=== PATIENT | male | born 1955 | race African-American/Black ===

== ENCOUNTER 2016-06-28 14:05 | Observation (INO) | payer MEDICAID, OTHER ==
[2016-06-28] MEDS ORDERED: NS 0.9% 1000 ML* 2,000 ML IV ONE (14:59)
[2016-06-28] MEDS ORDERED: Pantoprazole IV* 40 MG IV ONE ×2 (14:59)
[2016-06-28 15:28] LABS: Hematocrit 33 % (42-52); Hemoglobin 11.2 g/dl (14.0-18.0); Mean Corpuscular HGB Conc 34 g/dl (31-36); Mean Corpuscular Hemoglobin 31 pg (27-31); Mean Corpuscular Volume 92 fL (80-94); Mean Platelet Volume 8 um3 (7.4-10.4); Red Blood Count 3.58 10^6/ul (4.0-5.4); Red Cell Distribution Width 14 % (10.5-15); White Blood Count 8.3 10^3/ul (3.5-10.8)
[2016-06-28] MEDS: NS 0.9% 1000 ML* 2,000 ML IV ONE (15:40)
[2016-06-28 15:46] LABS: ALT 28 U/L (7-52); AST 31 U/L (13-39); Albumin 3.8 g/dL (3.2-5.2); Alkaline Phosphatase 52 U/L (34-104); Anion Gap 4 mmol/L (2-11); BUN/Creatinine Ratio 20.5 (8-20); Blood Urea Nitrogen 16 mg/dL (6-24); C Reactive Protein 6.23 mg/L (< 5.00); CO2 Carbon Dioxide 26 mmol/L (22-32); Chloride 101 mmol/L (101-111); EGFR Non-African American 101.9 (>60); Globulin 2.9 g/dL (2-4); Glucose 93 mg/dL (70-100); Lipase < 10 U/L (11.0-82.0); Potassium 4.2 mmol/L (3.5-5.0); Sodium 131 mmol/L (133-145); Total Protein 6.7 g/dL (6.4-8.9)
--- NOTE | 2016-06-28 16:26 | ED ---
Ephraim Galvez Anna, scribed for rFank Moctezuma MD on 06/28/16 at 1438 . GI/ HPI - HPI Summary HPI Summary: Patient is a 60 y/o male coming to [facility] presenting with bloody stools that occurred twice, 0900, and 1330 today. He additionally reports nausea, lightheadedness, and hyperactive bowel sounds. Denies abdominal pain. Nothing appears to alleviate or exacerbate the symptoms. He had no symptoms yesterday. His history is significant for GERD. Denies abd surgeries and colonoscopies. He had an OR 8 months ago and takes blood thinners. He sometimes feels bad after taking his blood thinners, so he takes them in the afternoon. - History of Current Complaint Chief Complaint: EDGIBleed Time Seen by Provider: 06/28/16 14:33 Stated Complaint: BLOOD IN STOOL Hx Obtained From: Patient Onset/Duration: Started Hours Ago, Still Present Severity: Moderate Current Severity: Moderate Pain Intensity: 0 Associated Signs and Symptoms: Positive: Nausea, Blood w/Stool, Diarrhea - Allergy/Home Medications Allergies/Adverse Reactions: Allergies Allergy/AdvReac Type Severity Reaction Status Date / Time No Known Allergies Allergy Verified 06/28/16 14:24 Home Medications: Home Medications Metoprolol Tartrate TAB* [Lopressor TAB*] 25 mg PO DAILY 06/28/16 [History Confirmed 06/28/16] PMH/Surg Hx/FS Hx/Imm Hx Endocrine/Hematology History: Reports: Hx Anticoagulant Therapy Denies: Hx Diabetes, Hx Thyroid Disease Cardiovascular History: Reports: Hx Coronary Artery Disease, Hx Myocardial Infarction Respiratory History: Reports: Hx Seasonal Allergies Denies: Hx Asthma, Hx Chronic Obstructive Pulmonary Disease (COPD) GI History: Denies: Hx Ulcer Musculoskeletal History: Reports: Hx Back Problems - DEGENERATIVE DISK DISEASE Sensory History: Reports: Hx Contacts or Glasses Opthamlomology History: Reports: Hx Contacts or Glasses Infectious Disease History: No Infectious Disease History: Denies: Hx Hepatitis, Hx Human Immunodeficiency Virus (HIV), Traveled Outside the [place] in Last 30 Days - Family History Known Family History: Negative: Cardiac Disease, Diabetes Family History: FHx Parkinson's in Father - Social History Alcohol Use: Occasionally Substance Use Type: Reports: None Smoking Status (MU): Light Every Day Tobacco Smoker Type: Cigarettes Amount Used/How Often: 10 cigs per day Have You Smoked in the Last Year: Yes Review of Systems Positive: Diarrhea, Nausea, Other - hyperactive bowel sounds. Negative: Abdominal Pain Positive: other - hematochezia Neurological: Other - lightheadedness All Other Systems Reviewed And Are Negative: Yes Physical Exam Triage Information Reviewed: Yes Vital Signs On Initial Exam: Initial Vitals Temp Pulse Resp BP Pulse Ox 98.5 F 82 16 123/81 100 06/28/16 14:05 06/28/16 14:05 06/28/16 14:05 06/28/16 14:05 06/28/16 14:05 Vital Signs Reviewed: Yes Appearance: Positive: Well-Appearing, No Pain Distress Skin: Positive: Warm, Skin Color Reflects Adequate Perfusion, Dry Head/Face: Positive: Normal Head/Face Inspection Eyes: Positive: EOMI, LIZZETTE ENT: Positive: Normal ENT inspection Neck: Positive: Supple, Nontender Respiratory/Lung Sounds: Positive: Clear to Auscultation, Breath Sounds Present Cardiovascular: Positive: RRR Abdomen Description: Positive: Nontender, Soft Bowel Sounds: Positive: Present Male Genital Exam: Positive: other - Rectal exam reveals bright red blood. Musculoskeletal: Positive: Normal, Strength/ROM Intact Neurological: Positive: Normal, Sensory/Motor Intact, Alert, Oriented to Person Place, Time Psychiatric: Positive: Affect/Mood Appropriate - Alex Coma Scale Coma Scale Total: 15 Diagnostics - Vital Signs Vital Signs Temp Pulse Resp BP Pulse Ox 06/28/16 14:30 75 111/72 99 06/28/16 14:29 80 99 06/28/16 14:28 122/68 06/28/16 14:26 98.7 F 74 16 122/68 99 06/28/16 14:05 98.5 F 82 16 123/81 100 - Laboratory Lab Results: Lab Results 06/28/16 06/28/16 06/28/16 Range/Units 15:15 15:15 15:15 WBC 8.3 (3.5-10.8) 10^3/ul RBC 3.58 L (4.0-5.4) 10^6/ul Hgb 11.2 L (14.0-18.0) g/dl Hct 33 L (42-52) % MCV 92 (80-94) fL MCH 31 (27-31) pg MCHC 34 (31-36) g/dl RDW 14 (10.5-15) % Plt Count 361 (150-450) 10^3/ul MPV 8 (7.4-10.4) um3 Neut % (Auto) 63.1 (38-83) % Lymph % (Auto) 24.7 L (25-47) % Boundary % (Auto) 11.1 H (1-9) % Eos % (Auto) 0.6 (0-6) % Baso % (Auto) 0.5 (0-2) % Absolute Neuts (auto) 5.2 (1.5-7.7) 10^3/ul Absolute Lymphs (auto) 2.0 (1.0-4.8) 10^3/ul Absolute Monos (auto) 0.9 H (0-0.8) 10^3/ul Absolute Eos (auto) 0 (0-0.6) 10^3/ul Absolute Basos (auto) 0 (0-0.2) 10^3/ul Absolute Nucleated RBC 0.01 10^3/ul Nucleated RBC % 0.1 INR (Anticoag Therapy) 1.00 (0.89-1.11) APTT 32.8 (26.0-36.3) seconds Sodium 131 L (133-145) mmol/L Potassium 4.2 (3.5-5.0) mmol/L Chloride 101 (101-111) mmol/L Carbon Dioxide 26 (22-32) mmol/L Anion Gap 4 (2-11) mmol/L BUN 16 (6-24) mg/dL Creatinine 0.78 (0.67-1.17) mg/dL Est GFR ( Amer) 131.0 (>60) Est GFR (Non-Af Amer) 101.9 (>60) BUN/Creatinine Ratio 20.5 H (8-20) Glucose 93 (70-100) mg/dL Lactic Acid (0.5-2.0) mmol/L Calcium 9.0 (8.6-10.3) mg/dL Total Bilirubin 0.50 (0.2-1.0) mg/dL AST 31 (13-39) U/L ALT 28 (7-52) U/L Alkaline Phosphatase 52 (34-104) U/L C-Reactive Protein 6.23 H (< 5.00) mg/L Total Protein 6.7 (6.4-8.9) g/dL Albumin 3.8 (3.2-5.2) g/dL Globulin 2.9 (2-4) g/dL Albumin/Globulin Ratio 1.3 (1-3) Lipase < 10 L (11.0-82.0) U/L Blood Type Antibody Screen 06/28/16 06/28/16 Range/Units 15:15 15:15 WBC (3.5-10.8) 10^3/ul RBC (4.0-5.4) 10^6/ul Hgb (14.0-18.0) g/dl Hct (42-52) % MCV (80-94) fL MCH (27-31) pg MCHC (31-36) g/dl RDW (10.5-15) % Plt Count (150-450) 10^3/ul MPV (7.4-10.4) um3 Neut % (Auto) (38-83) % Lymph % (Auto) (25-47) % Boundary % (Auto) (1-9) % Eos % (Auto) (0-6) % Baso % (Auto) (0-2) % Absolute Neuts (auto) (1.5-7.7) 10^3/ul Absolute Lymphs (auto) (1.0-4.8) 10^3/ul Absolute Monos (auto) (0-0.8) 10^3/ul Absolute Eos (auto) (0-0.6) 10^3/ul Absolute Basos (auto) (0-0.2) 10^3/ul Absolute Nucleated RBC 10^3/ul Nucleated RBC % INR (Anticoag Therapy) (0.89-1.11) APTT (26.0-36.3) seconds Sodium (133-145) mmol/L Potassium (3.5-5.0) mmol/L Chloride (101-111) mmol/L Carbon Dioxide (22-32) mmol/L Anion Gap (2-11) mmol/L BUN (6-24) mg/dL Creatinine (0.67-1.17) mg/dL Est GFR ( Amer) (>60) Est GFR (Non-Af Amer) (>60) BUN/Creatinine Ratio (8-20) Glucose (70-100) mg/dL Lactic Acid 0.9 (0.5-2.0) mmol/L Calcium (8.6-10.3) mg/dL Total Bilirubin (0.2-1.0) mg/dL AST (13-39) U/L ALT (7-52) U/L Alkaline Phosphatase (34-104) U/L C-Reactive Protein (< 5.00) mg/L Total Protein (6.4-8.9) g/dL Albumin (3.2-5.2) g/dL Globulin (2-4) g/dL Albumin/Globulin Ratio (1-3) Lipase (11.0-82.0) U/L Blood Type O Positive Antibody Screen Negative Result Diagrams: 06/28/16 15:15 06/28/16 15:15 Lab Statement: Any lab studies that have been ordered have been reviewed, and results considered in the medical decision making process. - EKG 1530 Cardiac Rate: NL - 70 bpm EKG Rhythm: Sinus Rhythm ST Segment: Normal Ectopy: None GIGU Course/Dx - Course Assessment/Plan: GI BLEED ON EFFIENT. ADMIT HOSPITALIST STABLE. - Diagnoses Provider Diagnoses: GI bleed - Physician Notifications Discussed Care Of Patient With: Dr. Campbell (hospitalist) at 1456. Accepts patient for admission. Discharge - Discharge Plan Condition: Stable Disposition: ADMITTED TO [facility] documentation as recorded by the Ephraim campbell Anna accurately reflects the service I personally performed and the decisions made by me, Frank Moctezuma MD.
[2016-06-28] MEDS: Omeprazole CAP* 20 MG PO SCH (20:00)
--- NOTE | 2016-06-28 20:19 | HP ---
ADMISSION HISTORY AND PHYSICAL: DATE OF ADMISSION: 06/28/16 PRIMARY CARE PROVIDER: None. HEALTHCARE PROXY: His daughter, Sapphire. CODE STATUS: Full. SOURCE OF INFORMATION: History obtained from interview with the patient, review of past medical records. RELIABILITY: Good. CHIEF COMPLAINT: Blood in the stool. HISTORY OF PRESENT ILLNESS: This is a 60-year-old man, past medical history of anterolateral STEMI with stent to LAD in October 2015, discharged on Effient and aspirin who had been in his usual state of health until 1-1/2 weeks prior to this admission. Approximately 9 days prior over the weekend, he did have episode of pain in his abdomen overnight that lasted for several hours. It was not associated with any nausea, vomiting, diarrhea, bright red blood per rectum or melena, but did have decreased p.o. intake the following day. The week prior to this presentation, he had been feeling well until 3 days prior, he had an episode of nausea, vomiting at work, went home, and had 2 additional episodes of nausea and vomiting. The day of presentation, he felt like his stomach was rumbling like he needs to use the bathroom. He did have minimal straining, but after moving his bowels, noticed it to be bright red blood per rectum mixed with loose and watery stool. Relief of his GI upset. However, approximately 1-1/2 to 2 hours later again, felt the urge to use the bathroom and upon movement of his bowels, had again a large quantity of bright red blood per rectum noticed in the toilet. He has noticed no lightheadedness, dizziness , chest pain, shortness of breath, changes in vision, headache, changes in weight, fevers, chills, night sweats, although has endorsed increasing fatigue over the last 3 or 4 days. Additionally, no sick contacts and no recent travel. When seen by this author, his last bowel movement was approximately 2 hours later. The patient has no complaints. PAST MEDICAL HISTORY: Includes: 1. Anterolateral STEMI with stent to LAD on 11/04/15 with radial access by Dr. Tom. 2. Allergic rhinitis. 3. History of tobacco abuse, now resolved. PAST SURGICAL HISTORY: No history of surgeries. MEDICATIONS: Reviewed with the patient, include: 1. Effient 10 mg daily. 2. Metoprolol 25 mg daily. 3. Lisinopril 10 mg daily. 4. Aspirin 81 mg daily. ALLERGIES: No known drug allergies. FAMILY HISTORY: No family history of CAD or bleeding disorders. His maternal uncle had colon cancer. SOCIAL HISTORY: Quit smoking in 2016. Has 32-nrow-vhdr history. About 12 beers per week. No illicits. Works with the [employer]. REVIEW OF SYSTEMS: As per HPI. Otherwise, all other systems negative. PHYSICAL EXAMINATION GENERAL: Sitting up in bed, interactive, pleasant in no apparent distress. VITAL SIGNS: In the emergency room, 111/72, heart rate 75, respiratory rate 16 , 99% on room air, T-max in the emergency room 98.7. HEENT: Oropharynx is clear. Moist mucous membranes. Sclerae are anicteric. NECK: He has shotty lymphadenopathy in the anterior and posterior cervical chains. Nontender to palpation. No supraclavicular lymphadenopathy. LUNGS: Clear to auscultation. HEART: Regular rate and rhythm. No murmurs, rubs, or gallops. ABDOMEN: Soft, nontender, nondistended with positive bowel sounds. EXTREMITIES: Warm and well perfused without clubbing, cyanosis, or edema. NEUROLOGIC: He is alert and oriented x3. His cranial nerves II through XII are intact. Gait was not assessed. No apparent anxiety, agitation, or depression. LABORATORY DATA: Pertinent laboratory data reviewed. His hemoglobin 11.2, last checked was 13.7 and prior to that 11.5. Hematocrit is 33. MCV of 92. Platelets 361. INR is 1.0. His BUN is 16 with creatinine of 0.78. Lactic acid of 0.9. AST of 31, ALT of 28, CRP 6.2. Lipase less than 10. EKG: Normal sinus rhythm. No ST or T-wave changes. ASSESSMENT: This is a 60-year-old man, past medical history of ST-elevated myocardial infarction in October, discharged on Effient and aspirin, presenting with on and off GI symptoms over the last week and a half including abdominal pain as well as several episodes of nausea and vomiting, ultimately punctuated by bright red blood per rectum. GI bleed: Suspect low risk, especially in the setting of dual antiplatelet therapy. The patient has never undergone a colonoscopy. I believe he warrants a colonoscopy and dual antiplatelet therapy. It has been 6 months since his stent was placed, ideally would remain on Effient and aspirin for additional 6 months. In order _to continue meds , he should be evaluated for any intervenable lesions that might be responsible for bleeding, although it may be unlikely to find such a source. Trend hemoglobin and hematocrit every 6 hours while hospitalized. Maintain hemoglobin greater than 10. Discussed the care with Dr. Joiner who will evaluate the patient today. Coronary artery disease: Holding Effient and aspirin. Restart it as soon as stable, likely 2 or 3 days. Continue metoprolol and lisinopril. The patient discontinued atorvastatin prior to this hospital stay. FEN: Clear liquids. Code status is full, discussed with the patient. [id number]/CPS #: [id number] ARTUR
[2016-06-28] MEDS ORDERED: Omeprazole CAP* 20 MG PO ONE (21:00)
[2016-06-28] MEDS ORDERED: PEG 3000 GI LAVAGE* 1 GALLON PO ONE (21:00)
[2016-06-28] MEDS: PEG 3000 GI LAVAGE* 1 GALLON PO SCH (21:54)
--- NOTE | 2016-06-28 22:17 | CONS ---
GASTROENTEROLOGY CONSULT: DATE: CONSULTING PHYSICIAN: Rehan Mckeon REASON FOR CONSULTATION: Bright red rectal bleeding. 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 preparing for work, he felt an urge to go to the bathroom. He tried to withhold it, but realized being able to work was not going to be possible, and he went into the toilet and was surprised to see fresh and dark red blood. He did manage to go to work at that point, but had to go into a house (he is a optical laboratory manager) and passed another bloody stool. He had a cheese burger around noon, which was his first intake of the day. He had not really been feeling weak. He then got nervous and came to the emergency room around 2. Since arriving here, he has had 3 more bloody passages and only with the last one did he feel a little weak. He states that usually, his bowel habit is fine, regular, and without any trouble. About 9 days ago, he had one day with a focal pain in the low abdomen and some diarrhea that lasted about 12 hours. There was no fever and no visible blood then. It then cleared and he was fine for the ensuing week. He has never had a colonoscopy and reveals he is phobic about what it might find. He has never been treated for any gastrointestinal problems. He does not have a primary physician. PAST MEDICAL HISTORY: Coronary artery disease - status post stenting of left anterior descending, November [address] Tom. He has had a followup appointment with Dr Tom and actually has one scheduled in a week. He has no regular MD and has not seen a regular physician since the STEMI. HOME MEDICATIONS: Aspirin 81, Effient 10, Metoprolol 25, Lisinopril 10. His list does not include a statin. SOCIAL HISTORY: He is from [place] originally. 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 He came to [facility] as two daughters were living here. He subsequently had another daughter. He has been with the [employer], for 23 years. REVIEW OF SYSTEMS: No history of TB, hemoptysis, palpitations, syncope, valvular disease, peptic disease, or renal disease. No history of psoriasis, TIA, seizures or migraines. PHYSICAL EXAM: He is a slender, fit appearing middle aged black male, in no distress. HEENT exam is unremarkable. He has no adenopathy. His lungs are clear. Heart sounds are normal. His abdomen is symmetric, soft and nontender. It is quite benign. Rectal: Deferred. Extremities show no edema. Neurologic is nonfocal. LABS: Admission CBC- Hg 11.2, hematocrit 33, down from baseline 13.7 in October 2015. BUN is 16, creatinine 0.78. LFTs normal. Albumin 3.8 IMPRESSION: This 60-year-old man presented with bright red rectal bleeding noting several passages over about 7 or 8 hours. 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 His BUN is low. All signs point to lower gastrointestinal bleeding and top of the list would be diverticulosis. Certainly, rarely a tumor or polyp can bleed precipitously like this, but it is not the rule. Nonetheless, giving more diagnostic information and potentially applying a clip if a culprit area can be identified is a priority to getting him back on his Effient and he accepts prepping with Colyte 2 L now and 2 L in the morning. [id number]/CPS #: [id number] MTDD
[2016-06-28 22:44] LABS: Hematocrit 25 % (42-52); Hemoglobin 8.3 g/dl (14.0-18.0)
[2016-06-29 02:17] LABS: Hematocrit 26 % (42-52); Hemoglobin 8.7 g/dl (14.0-18.0)
[2016-06-29 02:33] LABS: BUN/Creatinine Ratio 15.4 (8-20); Calcium 7.7 mg/dL (8.6-10.3); EGFR Non-African American 101.9 (>60); Potassium 4.2 mmol/L (3.5-5.0)
[2016-06-29] MEDS: PEG 3000 GI LAVAGE* 1 GALLON PO SCH (05:11)
[2016-06-29 05:54] LABS: Hematocrit 27 % (42-52)
--- NOTE | 2016-06-29 08:04 | PN ---
Subjective Date of Service: 06/29/16 Interval History: Blood in BM overnight. Received 1 U PRBC overnight. Last BM was bloody one around 230AM. Drinking bowel prep but not have clear BMs as of yet. No abdominal pain. No N/V. N complaints Objective Active Medications: Lisinopril (Prinivil Tab*) 10 mg PO DAILY [facility] Metoprolol Tartrate (Lopressor Tab*) 25 mg PO DAILY [facility] Omeprazole (Prilosec Cap*) 20 mg PO BID [facility] Last Admin: 06/28/16 20:00 Dose: 20 mg Polyethylene Glycol/Electrolytes (Golytely*) 2,000 ml PO 0600,2100 [facility] Stop: 06/29/16 12:00 Last Admin: 06/29/16 05:11 Dose: 2,000 ml Vital Signs 06/28/16 06/28/16 06/28/16 16:00 16:16 19:20 Temperature 98.4 F Pulse Rate 73 71 71 Respiratory 16 Rate Blood Pressure 133/76 (mmHg) O2 Sat by Pulse 99 99 100 Oximetry 06/28/16 06/28/16 06/29/16 19:44 23:20 00:12 Temperature 98.3 F Pulse Rate 86 Respiratory 16 14 20 Rate Blood Pressure 125/72 109/82 (mmHg) O2 Sat by Pulse 100 98 Oximetry 06/29/16 07:28 Temperature 98.5 F Pulse Rate Respiratory Rate Blood Pressure (mmHg) O2 Sat by Pulse Oximetry Oxygen Devices in Use Now: None Appearance: NAD Eyes: No Scleral Icterus, PERRLA Ears/Nose/Mouth/Throat: NL Teeth, Lips, Gums, Clear Oropharnyx, Mucous Membranes Moist Neck: NL Appearance and Movements; NL JVP, Trachea Midline Respiratory: Symmetrical Chest Expansion and Respiratory Effort, Clear to Auscultation Cardiovascular: NL Sounds; No Murmurs; No JVD, RRR Abdominal: NL Sounds; No Tenderness; No Distention Lymphatic: No Cervical Adenopathy Extremities: No Edema Skin: No Rash or Ulcers, No Nodules or Sclerosis Neurological: Alert and Oriented x 3 Result Diagrams: 06/29/16 05:26 06/29/16 02:05 Additional Lab and Data: Lab Results 06/28/16 06/28/16 06/28/16 Range/Units 15:15 15:15 15:15 WBC 8.3 (3.5-10.8) 10^3/ul RBC 3.58 L (4.0-5.4) 10^6/ul Hgb 11.2 L (14.0-18.0) g/dl Hct 33 L (42-52) % MCV 92 (80-94) fL MCH 31 (27-31) pg MCHC 34 (31-36) g/dl RDW 14 (10.5-15) % Plt Count 361 (150-450) 10^3/ul MPV 8 (7.4-10.4) um3 Neut % (Auto) 63.1 (38-83) % Lymph % (Auto) 24.7 L (25-47) % Wolfe % (Auto) 11.1 H (1-9) % Eos % (Auto) 0.6 (0-6) % Baso % (Auto) 0.5 (0-2) % Absolute Neuts (auto) 5.2 (1.5-7.7) 10^3/ul Absolute Lymphs (auto) 2.0 (1.0-4.8) 10^3/ul Absolute Monos (auto) 0.9 H (0-0.8) 10^3/ul Absolute Eos (auto) 0 (0-0.6) 10^3/ul Absolute Basos (auto) 0 (0-0.2) 10^3/ul Absolute Nucleated RBC 0.01 10^3/ul Nucleated RBC % 0.1 INR (Anticoag Therapy) 1.00 (0.89-1.11) APTT 32.8 (26.0-36.3) seconds Sodium 131 L (133-145) mmol/L Potassium 4.2 (3.5-5.0) mmol/L Chloride 101 (101-111) mmol/L Carbon Dioxide 26 (22-32) mmol/L Anion Gap 4 (2-11) mmol/L BUN 16 (6-24) mg/dL Creatinine 0.78 (0.67-1.17) mg/dL Est GFR ( Amer) 131.0 (>60) Est GFR (Non-Af Amer) 101.9 (>60) BUN/Creatinine Ratio 20.5 H (8-20) Glucose 93 (70-100) mg/dL Lactic Acid (0.5-2.0) mmol/L Calcium 9.0 (8.6-10.3) mg/dL Total Bilirubin 0.50 (0.2-1.0) mg/dL AST 31 (13-39) U/L ALT 28 (7-52) U/L Alkaline Phosphatase 52 (34-104) U/L C-Reactive Protein 6.23 H (< 5.00) mg/L Total Protein 6.7 (6.4-8.9) g/dL Albumin 3.8 (3.2-5.2) g/dL Globulin 2.9 (2-4) g/dL Albumin/Globulin Ratio 1.3 (1-3) Lipase < 10 L (11.0-82.0) U/L Blood Type Antibody Screen 06/28/16 06/28/16 Range/Units 15:15 15:15 WBC (3.5-10.8) 10^3/ul RBC (4.0-5.4) 10^6/ul Hgb (14.0-18.0) g/dl Hct (42-52) % MCV (80-94) fL MCH (27-31) pg MCHC (31-36) g/dl RDW (10.5-15) % Plt Count (150-450) 10^3/ul MPV (7.4-10.4) um3 Neut % (Auto) (38-83) % Lymph % (Auto) (25-47) % Wolfe % (Auto) (1-9) % Eos % (Auto) (0-6) % Baso % (Auto) (0-2) % Absolute Neuts (auto) (1.5-7.7) 10^3/ul Absolute Lymphs (auto) (1.0-4.8) 10^3/ul Absolute Monos (auto) (0-0.8) 10^3/ul Absolute Eos (auto) (0-0.6) 10^3/ul Absolute Basos (auto) (0-0.2) 10^3/ul Absolute Nucleated RBC 10^3/ul Nucleated RBC % INR (Anticoag Therapy) (0.89-1.11) APTT (26.0-36.3) seconds Sodium (133-145) mmol/L Potassium (3.5-5.0) mmol/L Chloride (101-111) mmol/L Carbon Dioxide (22-32) mmol/L Anion Gap (2-11) mmol/L BUN (6-24) mg/dL Creatinine (0.67-1.17) mg/dL Est GFR ( Amer) (>60) Est GFR (Non-Af Amer) (>60) BUN/Creatinine Ratio (8-20) Glucose (70-100) mg/dL Lactic Acid 0.9 (0.5-2.0) mmol/L Calcium (8.6-10.3) mg/dL Total Bilirubin (0.2-1.0) mg/dL AST (13-39) U/L ALT (7-52) U/L Alkaline Phosphatase (34-104) U/L C-Reactive Protein (< 5.00) mg/L Total Protein (6.4-8.9) g/dL Albumin (3.2-5.2) g/dL Globulin (2-4) g/dL Albumin/Globulin Ratio (1-3) Lipase (11.0-82.0) U/L Blood Type O Positive Antibody Screen Negative Assess/Plan/Problems-Billing Assessment: 60 M h/o STEMI 10/2015 with LAD stent p/w GIB bleed suspected lower source - Patient Problems (1) Acute GI hemorrhage Comment: 1U PRBC overnight 06/29 Suspected lower source Trend H/H Plan cscope (2) Anterolateral myocardial infarction Comment: Holding prasugrel and ASA prior to cscope c/w ACEi and beta [place] patient stopped statin prior to this hospital stay (3) DVT (deep venous thrombosis) Comment: SCDs
[2016-06-29] MEDS: Lisinopril TAB* 10 MG PO SCH ×2 (08:37→08:38)
[2016-06-29] MEDS: Metoprolol Tartrate TAB* 25 MG PO SCH (08:37)
[2016-06-29] MEDS: Omeprazole CAP* 20 MG PO SCH ×2 (08:37→20:26)
[2016-06-29] MEDS ORDERED: Lisinopril TAB* 10 MG PO ONE (09:00)
[2016-06-29] MEDS ORDERED: Metoprolol Tartrate TAB* 25 MG PO ONE (09:00)
[2016-06-29] MEDS ORDERED: fentaNYL* 50 MCG/ML 2 ML VIAL (100 MCG VIAL) ONE ×2 (10:15)
[2016-06-29] MEDS ORDERED: Midazolam* 1 MG/ML 10 ML VIAL (10 MG) ONE ×2 (10:16)
--- NOTE | 2016-06-29 11:56 | PRO ---
DATE OF PROCEDURE: 06/29/2016 - ROOM #442 PROCEDURE PERFORMED: Colonoscopy and snare polypectomy and biopsies. MEDICATIONS USED: Versed 7 mg IV and Fentanyl 75 mcg IV. HISTORY: This is a very pleasant, 60-year-old gentleman who presents with rectal bleeding. The patient has a history of coronary disease and is on an anticoagulant. He noticed sudden onset of rectal bleeding associated with some mild abdominal pain. For these indications, colonoscopy was recommended. This is his first colonoscopy exam. PROCEDURE: After the procedure was discussed with the patient, risks and benefits were outlined, written consent was obtained. The patient was placed in the left lateral decubitus position and a rectal exam was performed. The rectal exam was normal. At that point, colonoscopy was carried out. A video adult flexible colonoscope was inserted anally and advanced very carefully into the cecum. The cecum was identified by the appendiceal orifice and the ileocecal valve. The terminal ileum was briefly intubated. The quality of the preparation was good. The patient tolerated the procedure well and there were no immediate complications. FINDINGS: Colonoscopy into the distal terminal ileum was performed. The ileum was inspected for about 10 to 15 cm and was normal. The colon was thereafter very carefully inspected. An area of inflammatory change was appreciated in the hepatic flexure which appeared endoscopically like ischemic colitis. There were thickened folds and scattered erosions and ulcerations. It spanned about 10 to 15 cm in the hepatic flexure region and biopsies were obtained. Additionally two polyps were identified and removed. One was in the cecal base and was removed with the cold snare. Another smaller polyp was seen in the sigmoid colon which was removed with the biopsy forceps. Additionally, minimal sigmoid diverticulosis was noted. No other mucosal abnormality was detected. There was no evidence of blood in the colonic lumen. The submucosal vascular pattern appeared grossly normal. The rectum was viewed both in the forward view and retroflex manner and was normal. CONCLUSION: Probable ischemic colitis involving the hepatic flexure as described above (biopsies obtained), two polyps removed, mild sigmoid diverticulosis. Otherwise, normal colonoscopy. RECOMMENDATION: All the biopsies will be followed up on and reported back to the patient. He looks like he will heal from the ischemic colitis and we could likely start his anticoagulants in the next couple of days. [id number]/[facility] #: [id number] [facility]
[2016-06-29 12:57] LABS: Hematocrit 25 % (42-52); Hemoglobin 8.1 g/dl (14.0-18.0)
[2016-06-29 20:09] LABS: Hematocrit 23 % (42-52); Hemoglobin 7.8 g/dl (14.0-18.0)
[2016-06-30 05:24] LABS: Hematocrit 22 % (42-52); Hemoglobin 7.6 g/dl (14.0-18.0)
[2016-06-30] MEDS: Lisinopril TAB* 10 MG PO SCH (08:58)
[2016-06-30] MEDS: Omeprazole CAP* 20 MG PO SCH (08:58)
[2016-06-30] MEDS: Metoprolol Tartrate TAB* 25 MG PO SCH (08:59)
[2016-06-30 14:44] LABS: Hematocrit 27 % (42-52); Hemoglobin 9.4 g/dl (14.0-18.0)
[2016-06-30 15:19] VITALS: BP 123/50
--- NOTE | 2016-06-30 19:30 | DS ---
DISCHARGE SUMMARY: DATE OF ADMISSION: 06/28/16 DATE OF DISCHARGE: 06/30/16 PRIMARY CARE PROVIDER: Dr. Manuel Campbell. PRIMARY DIAGNOSIS: Ischemic colitis. SECONDARY DIAGNOSES: 1. Coronary artery disease with history of ST-elevation myocardial infarction and stent to left anterior descending artery in October 2015. 2. Allergic rhinitis. 3. History of alcohol abuse, now resolved. MEDICATIONS ON DISCHARGE: Include: 1. Effient 10 mg daily. 2. Metoprolol tartrate 25 mg daily. 3. Lisinopril 10 mg daily. 4. Aspirin 81 mg daily. 5. Ferrous sulfate 325 mg 3 times daily. PROCEDURES PERFORMED DURING HOSPITAL STAY: Colonoscopy performed, 06/29/16, by Dr. Garcia. Conclusion: Probable ischemic colitis involving hepatic flexure. Biopsy is taken, 2 polyps removed from the sigmoid colon, otherwise normal colonoscopy. PERTINENT LABORATORY DATA: Hemoglobin on presentation 11.2, declined to 7.6. The patient received 1 unit of packed red blood cells during his active bleeding and 1 pack of packed red blood cells prior to his discharge. HISTORY OF PRESENT ILLNESS AND HOSPITAL COURSE: This is a 60-year-old gentleman with past medical history of STEMI with placement of a stent with LAD in October with Dr. Tom, discharged on Effient and aspirin, returning to the hospital at this time with bright red blood per rectum on several occasions. He was monitored in the hospital. His hemoglobin down trended as indicated above. He received 1 unit of packed red blood cells prior to his colonoscopy, which was notable for suggestive ischemic colitis with biopsies pending. He did not bleed additionally after the colonoscopy. He was tolerating diet prior to discharge, ambulating, had no complaints. Did discuss with Gastroenterology , Dr. Joiner, and not find a contraindication restarting prasugrel and aspirin , which was done on discharge. I discussed at length with the patient returning to the hospital for further evidence of bleeding or melena. The patient does have a followup with Dr. Tom today, which he may not make, we will reschedule to discuss his medications further. There were no complications of this patient's hospital stay. Of note, he is not on atorvastatin after stopping reportedly at Dr. Tom' discretion. FOLLOWUP INSTRUCTIONS: At followup, please: 1. Consider following CBC for stability of hemoglobin and hematocrit. 2. Age-appropriate cancer screening and vaccinations. 3. No other specific labs or vitals that need followup. Reasons to return to the hospital include, but not limited to recurrent or worsening symptoms, shortness of breath, chest pain, nausea, vomiting, lightheadedness, loss of consciousness, dark black stool, or bright red blood per rectum, discussed with the patient. He acknowledged understanding. TIME SPENT: Greater than 45 minutes was spent on discharge of this patient with greater than half was spent [id number] with the patient. [id number]/[facility] #: [id number] ARTUR
== END 2016-06-30 16:20 | disposition home or self-care (01) ==
LOC: ED 14:05 → MEDTELE 15:34 → MED 06-30 07:22
PROVIDERS: ADMIT Internal Medicine; ATTEND Internal Medicine
DX: K55.9 Vascular disorder of intestine, unspecified (principal); I25.810 Atherosclerosis of coronary artery bypass graft(s) without angina pectoris; Z95.5 Presence of coronary angioplasty implant and graft; J30.9 Allergic rhinitis, unspecified; Z79.82 Long term (current) use of aspirin; Z87.891 Personal history of nicotine dependence
CPT/HCPCS: 36415; 80048; 80053; 82272; 83605; 83690; 85014; 85018; 85025; 85610; 85730; 86140; 86850; 86900; 86901; 86922; 88305; 93005; 96365; 99283; A9270-GY; G0378; J2250; J3010; P9040

== ENCOUNTER 2017-01-28 19:13 | Inpatient (IN) | payer OTHER ==
[2017-01-28] MEDS ORDERED: Nitroglycerin 0.2 MG/HR PATCH* (5 MG) TRANSDERM ONE (19:25)
[2017-01-28 19:30] LABS: Hematocrit 38 % (42-52); Hemoglobin 13.3 g/dl (14.0-18.0); Mean Corpuscular HGB Conc 35 g/dl (31-36); Mean Corpuscular Hemoglobin 32 pg (27-31); Mean Corpuscular Volume 93 fL (80-94); Mean Platelet Volume 7 um3 (7.4-10.4); Red Blood Count 4.14 10^6/ul (4.0-5.4); Red Cell Distribution Width 13 % (10.5-15); White Blood Count 8.9 10^3/ul (3.5-10.8)
[2017-01-28] MEDS ORDERED: NS 0.9% 500 ML BAG* 500 ML IV ONE (19:36)
[2017-01-28 19:41] LABS: Albumin 4.1 g/dL (3.2-5.2); BUN/Creatinine Ratio 12.8 (8-20); Calcium 9.1 mg/dL (8.6-10.3); EGFR African American 130.6 (>60); EGFR Non-African American 101.5 (>60); Globulin 3.3 g/dL (2-4); Total Protein 7.4 g/dL (6.4-8.9)
[2017-01-28] MEDS ORDERED: Heparin VIAL(*) 5000 UNITS/ML VIAL (FIVE THOUSAND) IV SCH (20:00)
--- NOTE | 2017-01-28 20:07 | RAD ---
Indication: Possible STEMI. Comparison: February 08, 2011 Technique: Upright AP 1937 hours Report: Transcutaneous pacemaker pads in place. Clear lungs and pleural spaces. Negative for pneumothorax. The heart, pulmonary vasculature, and mediastinal contours are unremarkable. Unremarkable osseous structures and soft tissue contours. IMPRESSION: No evidence for acute intrathoracic disease.
[2017-01-28] MEDS ORDERED: Norepinephrine 16MCG/ML IVPRE* 4,000 MCG/250 ML BAG IV ONE (20:32)
[2017-01-28] MEDS ORDERED: Nitroglycerin TAB 0.4 MG* 0.4 MG TAB SL PRN (20:49)
[2017-01-28] MEDS ORDERED: NS 0.9% 1000 ML* 1,500 ML IV SCH (21:00)
--- NOTE | 2017-01-28 21:09 | ED ---
Aga Galvez Rebecca, scribed for Segun Perla on 01/28/17 at 2006 . HPI Chest Pain - HPI Summary HPI Summary: Pt is a 61 y/o M with a PMHx of CAD and AZ BIBA who presents to ED c/o CP. Pain began this morning upon waking up and has been constant since onset, waxing and waning in intensity. Pain is in the left anterior region, characterized as tightness and has been ranked 4-6/10. On evaluation, pain was noted to be ranked 4/10, though on triage it was reported to be 7/10. Was given 325 mg ASA en route to [facility] [place] [place] ED by EMS. Sx aggravated and alleviated by nothing. Additionally c/o fatigue. Denies nausea and SOB. In October 2015, pt had an AZ during which he experienced more severe pain and had a stent put in place. SHx former smoker. - History of Current Complaint Chief Complaint: EDChestPainROMI Hx Obtained From: Patient, EMS Onset/Duration: Started Hours Ago, Still Present Time of Onset: 08:00 Timing: Constant Initial Severity: Moderate - 4-6/10 Current Severity: Moderate Pain Intensity: 7 Pain Scale Used: 0-10 Numeric Chest Pain Location: Left Anterior Character: Tightness Aggravating Factor(s): Nothing Alleviating Factor(s): Nothing Associated Signs and Symptoms: Positive: Other: - Fatigue. Negative: Shortness of Breath, Nausea - Allergy/Home Medications Allergies/Adverse Reactions: Allergies Allergy/AdvReac Type Severity Reaction Status Date / Time No Known Allergies Allergy Verified 01/28/17 19:27 PMH/Surg Hx/FS Hx/Imm Hx Endocrine/Hematology History: Reports: Hx Anticoagulant Therapy Denies: Hx Diabetes, Hx Thyroid Disease Cardiovascular History: Reports: Hx Coronary Artery Disease, Hx Myocardial Infarction, Other Cardiovascular Problems/Disorders - cardiac cath with stent Denies: Hx Hypertension Respiratory History: Reports: Hx Seasonal Allergies Denies: Hx Asthma, Hx Chronic Obstructive Pulmonary Disease (COPD) GI History: Reports: Hx Gastrointestinal Bleed - current Denies: Hx Ulcer Musculoskeletal History: Reports: Hx Back Problems - DEGENERATIVE DISK DISEASE Sensory History: Reports: Hx Contacts or Glasses - at home Opthamlomology History: Reports: Hx Contacts or Glasses - at home - Immunization History Date of Tetanus Vaccine: utd Date of Influenza Vaccine: none Infectious Disease History: No Infectious Disease History: Denies: Hx Hepatitis, Hx Human Immunodeficiency Virus (HIV), Traveled Outside the [place] in Last 30 Days - Family History Known Family History: Negative: Cardiac Disease, Diabetes Family History: FHx Parkinson's in Father - Social History Alcohol Use: Rare Alcohol Amount: 4 /day Substance Use Type: Reports: None Smoking Status (MU): Former Smoker Type: Cigarettes Amount Used/How Often: 1 ppd Length of Time of Smoking/Using Tobacco: 45 years Have You Smoked in the Last Year: Yes - quit 11/04/15 Review of Systems Positive: Fatigue Positive: Chest Pain Negative: Shortness Of Breath Negative: Nausea All Other Systems Reviewed And Are Negative: Yes Physical Exam - Summary Physical Exam Summary: Appearance: Well appearing, no pain distress Skin: warm, dry, reflects adequate perfusion Head/face: normal Eyes: EOMI, LIZZETTE ENT: normal Neck: supple, nontender Respiratory: CTA, breath sounds present Cardiovascular: RRR, pulses symmetrical Abdomen: nontender, soft Bowel: present Musculoskeletal: normal, strength/ROM intact Neuro: normal, sensory motor intact, A&Ox3 Triage Information Reviewed: Yes Vital Signs On Initial Exam: Initial Vitals Temp Pulse Resp BP Pulse Ox 99.4 F 57 13 99/63 98 01/28/17 19:26 01/28/17 19:26 01/28/17 19:26 01/28/17 19:26 01/28/17 19:26 Vital Signs Reviewed: Yes - Alex Coma Scale Coma Scale Total: 15 Diagnostics - Vital Signs Vital Signs Temp Pulse Resp BP Pulse Ox 01/28/17 19:26 99.4 F 57 13 99/63 98 - Laboratory Lab Results: Lab Results 01/28/17 01/28/17 01/28/17 Range/Units 19:15 19:15 19:15 WBC (3.5-10.8) 10^3/ul RBC (4.0-5.4) 10^6/ul Hgb (14.0-18.0) g/dl Hct (42-52) % MCV (80-94) fL MCH (27-31) pg MCHC (31-36) g/dl RDW (10.5-15) % Plt Count (150-450) 10^3/ul MPV (7.4-10.4) um3 Neut % (Auto) (38-83) % Lymph % (Auto) (25-47) % [place] % (Auto) (1-9) % Eos % (Auto) (0-6) % Baso % (Auto) (0-2) % Absolute Neuts (auto) (1.5-7.7) 10^3/ul Absolute Lymphs (auto) (1.0-4.8) 10^3/ul Absolute Monos (auto) (0-0.8) 10^3/ul Absolute Eos (auto) (0-0.6) 10^3/ul Absolute Basos (auto) (0-0.2) 10^3/ul Absolute Nucleated RBC 10^3/ul Nucleated RBC % INR (Anticoag Therapy) 0.87 L (0.89-1.11) APTT 32.3 (26.0-36.3) seconds Sodium 135 (133-145) mmol/L Potassium 4.0 (3.5-5.0) mmol/L Chloride 103 (101-111) mmol/L Carbon Dioxide 23 (22-32) mmol/L Anion Gap 9 (2-11) mmol/L BUN 10 (6-24) mg/dL Creatinine 0.78 (0.67-1.17) mg/dL Est GFR ( Amer) 130.6 (>60) Est GFR (Non-Af Amer) 101.5 (>60) BUN/Creatinine Ratio 12.8 (8-20) Glucose 93 (70-100) mg/dL Calcium 9.1 (8.6-10.3) mg/dL Total Bilirubin 1.00 (0.2-1.0) mg/dL AST 25 (13-39) U/L ALT 18 (7-52) U/L Alkaline Phosphatase 48 (34-104) U/L Total Creatine Kinase 142 (10-223) U/L CK-MB (CK-2) 2.5 (0.6-6.3) ng/mL Myoglobin 33.2 (17.4-105.7) ng/mL Troponin I 0.00 (<0.04) ng/mL B-Natriuretic Peptide 76 ( - 100) pg/mL Total Protein 7.4 (6.4-8.9) g/dL Albumin 4.1 (3.2-5.2) g/dL Globulin 3.3 (2-4) g/dL Albumin/Globulin Ratio 1.2 (1-3) LDL Cholesterol Direct 87 mg/dL Blood Type Antibody Screen 01/28/17 01/28/17 Range/Units 19:15 19:15 WBC 8.9 (3.5-10.8) 10^3/ul RBC 4.14 (4.0-5.4) 10^6/ul Hgb 13.3 L (14.0-18.0) g/dl Hct 38 L (42-52) % MCV 93 (80-94) fL MCH 32 H (27-31) pg MCHC 35 (31-36) g/dl RDW 13 (10.5-15) % Plt Count 330 (150-450) 10^3/ul MPV 7 L (7.4-10.4) um3 Neut % (Auto) 63.2 (38-83) % Lymph % (Auto) 22.8 L (25-47) % [place] % (Auto) 12.2 H (1-9) % Eos % (Auto) 1.3 (0-6) % Baso % (Auto) 0.5 (0-2) % Absolute Neuts (auto) 5.6 (1.5-7.7) 10^3/ul Absolute Lymphs (auto) 2.0 (1.0-4.8) 10^3/ul Absolute Monos (auto) 1.1 H (0-0.8) 10^3/ul Absolute Eos (auto) 0.1 (0-0.6) 10^3/ul Absolute Basos (auto) 0 (0-0.2) 10^3/ul Absolute Nucleated RBC 0 10^3/ul Nucleated RBC % 0 INR (Anticoag Therapy) (0.89-1.11) APTT (26.0-36.3) seconds Sodium (133-145) mmol/L Potassium (3.5-5.0) mmol/L Chloride (101-111) mmol/L Carbon Dioxide (22-32) mmol/L Anion Gap (2-11) mmol/L BUN (6-24) mg/dL Creatinine (0.67-1.17) mg/dL Est GFR ( Amer) (>60) Est GFR (Non-Af Amer) (>60) BUN/Creatinine Ratio (8-20) Glucose (70-100) mg/dL Calcium (8.6-10.3) mg/dL Total Bilirubin (0.2-1.0) mg/dL AST (13-39) U/L ALT (7-52) U/L Alkaline Phosphatase (34-104) U/L Total Creatine Kinase (10-223) U/L CK-MB (CK-2) (0.6-6.3) ng/mL Myoglobin (17.4-105.7) ng/mL Troponin I (<0.04) ng/mL B-Natriuretic Peptide ( - 100) pg/mL Total Protein (6.4-8.9) g/dL Albumin (3.2-5.2) g/dL Globulin (2-4) g/dL Albumin/Globulin Ratio (1-3) LDL Cholesterol Direct mg/dL Blood Type O Positive Antibody Screen Pending Result Diagrams: 01/28/17 19:15 01/28/17 19:15 Lab Statement: Any lab studies that have been ordered have been reviewed, and results considered in the medical decision making process. - EKG 1909 Cardiac Rate: Bradycardia - 58 bpm EKG Rhythm: Sinus Bradycardia EKG Interpretation: Interior lateral AZ EKG Comparison: Other - Changed from EKG on 06/28/2916 Re-Evaluation - Re-Evaluation First Eval Re-Evaluation Time: 19:32 Change: Unchanged Comment: Pt reports that he is not taking daily ASA, though he is on Plavix. Second Eval Re-Evaluation Time: 19:42 Change: Unchanged Chest Pain Course/Dx - Course Assessment/Plan: Pt is a 61 y/o M with a PMHx of CAD and AZ BIBA who presents to ED c/o left anterior CP since this morning upon waking up which has been constant since onset, waxing and waning in intensity. Pain is, characterized as tightness and has been ranked 4-6/10, currently moderate, ranked 4/10. Was given 325 mg ASA en route to [facility] [place] [place] ED by EMS. Additionally c/o fatigue. Denies nausea and SOB. In October 2015, pt had an AZ during which he experienced more severe pain and had a stent put in place. 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 EKG is sinus bradycardia with an inferior lateral AZ. Troponin of 0.00. In the ED course, pt received Heparian, fluids and an NTG patch. Discussed care of pt with Dr. Rosen who will evaluate the pt in the ED. Upon evaluatin, he will bring the pt to the earthmoving labourer and proceed to be admitted. Pt will be admitted with Dx of STEMI. He understands and agrees. Patient medications reviewed this visit. 50 minutes of critical care time. - Diagnoses Provider Diagnoses: STEMI (ST elevation myocardial infarction), Myocardial infarct, Chest pain During the Visit The Following Alert/Code Occurred: STEMI - 0 - Provider Notifications Discussed Care Of Patient With: Charles Rosen Time Discussed With Above Provider: 19:17 Instructed by Provider To: Other - Will evaluate the pt in the ED and bring to earthmoving labourer. - Critical Care Time Critical Care Time: 30-74 min - 50 minutes Discharge - Discharge Plan Condition: Stable Disposition: ADMITTED TO [facility] The documentation as recorded by the Aga campbell Rebecca accurately reflects the service I personally performed and the decisions made by , Segun Perla.
[2017-01-28 21:29] LABS: C Reactive Protein 15.79 mg/L (< 5.00)
[2017-01-28 21:57] LABS: Erythrocyte Sed Rate 10 mm/Hr (0-20)
[2017-01-28] MEDS: Metoprolol Tartrate TAB* 25 MG PO SCH (22:49)
--- NOTE | 2017-01-29 00:44 | HP ---
H&P (Free Text) History and Physical: PCP: Jayda Campbell MD Date/Time: 01/29/2017 0015 CC: chest pain HPI: Mr Mahoney is a 61YO male HX STEMI 10/2015 s/p stent to LAD who has been repetitively advised to start aspirin in addition to clopidogrel for his SARAH, but has as yet not been reliable in doing so. He reports onset around 0830 yesterday AM of dull/sharp L parasternal chest pain radiating to the R parasternal area, but not into the arms, neck, abdomen, or back. He denies SOB, palpitations, and sweats. He admits to some nausea without emesis, but no F/C, changes in bowel/bladder, or other issues. STEMI was called in ED with resultant cardiac cath via Bill Rosen MD interventional cardiology being negative for obstructive disease or occlusion of his LAD stent. PMedHx STEMI s/p stent to LAD 10/2015 ischemic colitis 06/2016 Ambulatory Orders Aspirin Low Dose CHEW TAB* [Aspirin Low Dose TAB*] 81 mg PO DAILY tab.chew 06/23 Lisinopril TAB* [Prinivil TAB 10 MG*] 10 mg PO DAILY #90 tab 11/07/15 Nitroglycerin TAB 0.4 MG* 0.4 mg SL Q5M PRN #20 tab 11/07/15 Prasugrel (NF) [Effient (NF)] 10 mg PO DAILY #30 tab 11/07/15 Metoprolol Tartrate TAB* [Lopressor TAB*] 25 mg PO DAILY 06/28/16 Ferrous Sulfate [Iron High-Potency] 325 mg PO TID #90 tab 06/30/16 Allergies No Known Allergies Allergy (Verified 01/28/17 19:27) PSurgHx denies SocHx: former smoker quit 2015 w/ 46 PYHX, ~12 beers/week, denies recreational drugs; full code status FamHx: no early onset CAD ROS: as above, otherwise reviewed and all were negative vitals: Vital Signs Temp 37.4 C 01/28/17 23:41 Pulse 51 01/28/17 22:16 Resp 14 01/29/17 00:10 BP 102/66 01/28/17 22:15 Pulse Ox 97 01/28/17 22:16 Intake & Output 01/28/17 01/28/17 01/29/17 11:59 23:59 11:59 Weight 71 kg Other: # Voids 1 Constitutional: NAD, normally developed, well-nourished black male HEENM: atraumatic; sclera/conjunctiva: non-icteric/clear; hearing: clinically intact; oropharynx: clear, mucosa moist Neck: soft tissue: non-tender; thyroid: normal Pulmonary: clear to auscultation bilaterally, good aeration, no accessory muscle use CV: RR/RR, normal S1S2, no carotid bruit, no jugular venous distention, 2+ B DP/ PT, no edema Abdominal: soft, non-distended, non-tender, no rebound/guarding/rigidity, normoactive bowel sounds, no hepatosplenomegaly or masses, no costovertebral angle tenderness Musculoskeletal: general: grossly intact; gait: stable Integumental: normal appearance and texture of exposed skin; R wrist cath band & immobilizer in place Psychiatric orientation: AA&O to PPS affect: calm mood: cooperative eye contact: good content: reliable responses: timely insight: fair to poor Testing: Lab Results 01/28/17 01/28/17 01/28/17 Range/Units 19:15 19:15 19:15 WBC (3.5-10.8) 10^3/ul RBC (4.0-5.4) 10^6/ul Hgb (14.0-18.0) g/dl Hct (42-52) % MCV (80-94) fL MCH (27-31) pg MCHC (31-36) g/dl RDW (10.5-15) % Plt Count (150-450) 10^3/ul MPV (7.4-10.4) um3 Neut % (Auto) (38-83) % Lymph % (Auto) (25-47) % [place] % (Auto) (1-9) % Eos % (Auto) (0-6) % Baso % (Auto) (0-2) % Absolute Neuts (auto) (1.5-7.7) 10^3/ul Absolute Lymphs (auto) (1.0-4.8) 10^3/ul Absolute Monos (auto) (0-0.8) 10^3/ul Absolute Eos (auto) (0-0.6) 10^3/ul Absolute Basos (auto) (0-0.2) 10^3/ul Absolute Nucleated RBC 10^3/ul Nucleated RBC % ESR (0-20) mm/Hr INR (Anticoag Therapy) 0.87 L (0.89-1.11) APTT 32.3 (26.0-36.3) seconds Sodium 135 (133-145) mmol/L Potassium 4.0 (3.5-5.0) mmol/L Chloride 103 (101-111) mmol/L Carbon Dioxide 23 (22-32) mmol/L Anion Gap 9 (2-11) mmol/L BUN 10 (6-24) mg/dL Creatinine 0.78 (0.67-1.17) mg/dL Est GFR ( Amer) 130.6 (>60) Est GFR (Non-Af Amer) 101.5 (>60) BUN/Creatinine Ratio 12.8 (8-20) Glucose 93 (70-100) mg/dL Calcium 9.1 (8.6-10.3) mg/dL Magnesium 2.0 (1.9-2.7) mg/dL Total Bilirubin 1.00 (0.2-1.0) mg/dL AST 25 (13-39) U/L ALT 18 (7-52) U/L Alkaline Phosphatase 48 (34-104) U/L Total Creatine Kinase 142 (10-223) U/L CK-MB (CK-2) 2.5 (0.6-6.3) ng/mL Myoglobin 33.2 (17.4-105.7) ng/mL Troponin I 0.00 (<0.04) ng/mL C-Reactive Protein 15.79 H (< 5.00) mg/L B-Natriuretic Peptide 76 ( - 100) pg/mL Total Protein 7.4 (6.4-8.9) g/dL Albumin 4.1 (3.2-5.2) g/dL Globulin 3.3 (2-4) g/dL Albumin/Globulin Ratio 1.2 (1-3) LDL Cholesterol Direct 87 mg/dL Blood Type Antibody Screen 01/28/17 01/28/17 Range/Units 19:15 19:15 WBC 8.9 (3.5-10.8) 10^3/ul RBC 4.14 (4.0-5.4) 10^6/ul Hgb 13.3 L (14.0-18.0) g/dl Hct 38 L (42-52) % MCV 93 (80-94) fL MCH 32 H (27-31) pg MCHC 35 (31-36) g/dl RDW 13 (10.5-15) % Plt Count 330 (150-450) 10^3/ul MPV 7 L (7.4-10.4) um3 Neut % (Auto) 63.2 (38-83) % Lymph % (Auto) 22.8 L (25-47) % [place] % (Auto) 12.2 H (1-9) % Eos % (Auto) 1.3 (0-6) % Baso % (Auto) 0.5 (0-2) % Absolute Neuts (auto) 5.6 (1.5-7.7) 10^3/ul Absolute Lymphs (auto) 2.0 (1.0-4.8) 10^3/ul Absolute Monos (auto) 1.1 H (0-0.8) 10^3/ul Absolute Eos (auto) 0.1 (0-0.6) 10^3/ul Absolute Basos (auto) 0 (0-0.2) 10^3/ul Absolute Nucleated RBC 0 10^3/ul Nucleated RBC % 0 ESR 10 (0-20) mm/Hr INR (Anticoag Therapy) (0.89-1.11) APTT (26.0-36.3) seconds Sodium (133-145) mmol/L Potassium (3.5-5.0) mmol/L Chloride (101-111) mmol/L Carbon Dioxide (22-32) mmol/L Anion Gap (2-11) mmol/L BUN (6-24) mg/dL Creatinine (0.67-1.17) mg/dL Est GFR ( Amer) (>60) Est GFR (Non-Af Amer) (>60) BUN/Creatinine Ratio (8-20) Glucose (70-100) mg/dL Calcium (8.6-10.3) mg/dL Magnesium (1.9-2.7) mg/dL Total Bilirubin (0.2-1.0) mg/dL AST (13-39) U/L ALT (7-52) U/L Alkaline Phosphatase (34-104) U/L Total Creatine Kinase (10-223) U/L CK-MB (CK-2) (0.6-6.3) ng/mL Myoglobin (17.4-105.7) ng/mL Troponin I (<0.04) ng/mL C-Reactive Protein (< 5.00) mg/L B-Natriuretic Peptide ( - 100) pg/mL Total Protein (6.4-8.9) g/dL Albumin (3.2-5.2) g/dL Globulin (2-4) g/dL Albumin/Globulin Ratio (1-3) LDL Cholesterol Direct mg/dL Blood Type O Positive Antibody Screen Negative ECG, personally reviewed: sinus bradycardia rate 52, diffuse ST-elevations new compared to 06/2016 CXR, personally reviewed: IMPRESSION: No evidence for acute intrathoracic disease. Impression: 61M presenting with chest pain & acute ECG abnormality DIAGNOSIS & PLAN Primary chest pain, suspect non-ACS; dDx: GI vs pericarditis vs chest wall : telemetry : trend troponin : aspirin : clopidogrel : continue lisinopril & metoprolol : supplemental oxygen : consider GI consultation in AM for consideration of upper GI pathology as etiology of chest pain : omeprazole : supportive care ECG abnormality : uncertain etiology : Bill Rosen MD interventional cardiology consulted, cardiac cath w/o obstructive disease : bedside ECHO w/o wall motion abnormality or effusion : trend ECGs : ECHO in AM Admission Rational: CDU observation for chest pain DVTp: received 4000 units heparin IV pre-cardiac cath Code Status: full
[2017-01-29] MEDS ORDERED: Ondansetron INJ* 2 MG/ML VIAL IV PRN (01:03)
[2017-01-29] MEDS: CMCS: Pantoprazole TAB (NF) 40 MG TAB PO SCH (05:22)
[2017-01-29 05:26] LABS: Hematocrit 37 % (42-52); Hemoglobin 12.5 g/dl (14.0-18.0); Mean Corpuscular HGB Conc 34 g/dl (31-36); Mean Corpuscular Hemoglobin 32 pg (27-31); Mean Corpuscular Volume 93 fL (80-94); Mean Platelet Volume 7 um3 (7.4-10.4); Red Blood Count 3.94 10^6/ul (4.0-5.4); Red Cell Distribution Width 14 % (10.5-15); White Blood Count 6.7 10^3/ul (3.5-10.8)
[2017-01-29 05:41] LABS: Albumin 3.5 g/dL (3.2-5.2); BUN/Creatinine Ratio 15.7 (8-20); Calcium 8.7 mg/dL (8.6-10.3); EGFR African American 147.9 (>60); Globulin 2.9 g/dL (2-4); HDL Cholesterol 64.2 mg/dL; Potassium 3.8 mmol/L (3.5-5.0); Total Protein 6.4 g/dL (6.4-8.9)
[2017-01-29 05:44] LABS: Troponin I 0.01 ng/mL (<0.04)
--- NOTE | 2017-01-29 07:54 | PN ---
Subjective Date of Service: 01/29/17 Interval History: Mr. Mahoney states that he is feeling well and he denies any complaint including chest pain. Objective Active Medications: Aspirin (Aspirin Low Dose Tab*) 81 mg PO DAILY [facility] Clopidogrel Bisulfate (Plavix Tab*) 75 mg PO DAILY [facility] Heparin Sodium (Porcine) (Heparin Vial(*)) 4,000 units IV ED ONCE [facility] Sodium Chloride (Ns 0.9% 1000 Ml*) 1,500 mls @ 125 mls/hr IV .per rate [facility] Metoprolol Tartrate (Lopressor Tab*) 12.5 mg PO BID [facility] Nitroglycerin (Nitroglycerin Tab 0.4 Mg*) 0.4 mg SL Q5M PRN Ondansetron HCl (Zofran Inj*) 4 mg IV Q6H PRN Pantoprazole Sodium (Protonix Tab (Nf)) 40 mg PO DAILY@0600 [facility] Vital Signs: Temp Pulse Resp BP Pulse Ox 98 F 56 12 116/68 97 01/29/17 07:46 01/29/17 05:01 01/29/17 06:16 01/29/17 05:00 01/29/17 05:01 Oxygen Devices in Use Now: None Appearance: Male sitting up in bed in NAD Eyes: No Scleral Icterus Ears/Nose/Mouth/Throat: Mucous Membranes Moist Neck: Trachea Midline Respiratory: Symmetrical Chest Expansion and Respiratory Effort, Clear to Auscultation Cardiovascular: NL Sounds; No Murmurs; No JVD, No Edema Abdominal: NL Sounds; No Tenderness; No Distention Lymphatic: No Cervical Adenopathy Extremities: No Edema Skin: No Rash or Ulcers Neurological: Alert and Oriented x 3, NL Muscle Strength and Tone Nutrition: Taking PO's Result Diagrams: 01/29/17 05:15 01/29/17 05:15 Additional Lab and Data: . Microbiology and Other Data: Microbiology 01/28/17 21:42 Nasal Screen MRSA (PCR)(CHUN) - Final Nasal Mrsa Negative Assess/Plan/Problems-Billing Assessment: Mr. Mahoney is a 61 yo male with a PMH of STEMI with SARAH placement who was admitted on 01/27/17 with chest pain and is now s/p cardiac cath with finding of no significant CAD. - Patient Problems (1) Chest pain Comment: - No evidence of significant CAD via cardiac cath. - Dr. Rosen concerned for pericarditis given difuse ST changes on EKG. - Plan to start colchicine and aspirin now and recheck EKG in AM. (2) CAD (coronary artery disease) Comment: - Continue aspirin and plavix. (3) DVT prophylaxis (4) Full code status Status and Disposition: Inpatient. Anticipate discharge to home when medically stable.
[2017-01-29] MEDS ORDERED: Aspirin Low Dose CHEW TAB* 81 MG PO SCH (09:00)
[2017-01-29] MEDS: Metoprolol Tartrate TAB* 25 MG PO SCH ×2 (09:08→20:56)
[2017-01-29] MEDS: Clopidogrel TAB* 75 MG PO SCH (09:08)
[2017-01-29] MEDS ORDERED: Lisinopril TAB* 5 MG PO ONE (10:19)
--- NOTE | 2017-01-29 12:12 | ECHO ---
Patient: HERO ROOT [facility] Rec#: [id number] : 1955 Date: 01/29/2017 Age: 61y Height: 175.3 cm / 69.0 in Weight: 68 kg / 149.9 lbs Sex: M BSA: 1.8 Room#: ICU 5 Admit Date#: 01/28/2017 Type: Inpatient Referring: Charles Rosen MD Reading: Cecy Bear MD Patch Press Operator: Isidra Tirado RN RDCS CC: Manuel Campbell MD Transthoracic Echocardiogram Indication: Chest pain, abnormal EKG BP: 116/68 HR: 50 Rhythm: Asystole Findings History: CAD with STEMI and LAD stenting in 10/2015, ischemic colitis Technical Comments: The study quality is fair. Completed at 1130. Left Ventricle: The left ventricular chamber size is normal. Global left ventricular wall motion and contractility are within normal limits.Redundant cordae noted, but no evidence of rupture or chordal TAISHA. Left ventricular systolic function is at the lower limits of normal. The estimated ejection fraction is 50-55%. There is no consistent Doppler evidence of clinically significant diastolic dysfunction. Left Atrium: The left atrial chamber size is normal. Right Ventricle: The right ventricular cavity size is normal. The right ventricular global systolic function is low normal.to mildly depressed. Right Atrium: The right atrium is mildly dilated. There is evidence of an atrial septal aneurysm. Aortic Valve: The aortic valve is trileaflet. The aortic valve leaflets are mildly thickened. There is a trace of aortic regurgitation. There is no evidence of aortic stenosis. Mitral Valve: The mitral valve leaflets are mildly thickened. There is mild mitral regurgitation. There is no evidence of mitral stenosis. Tricuspid Valve: The tricuspid valve leaflets are normal. There is mild tricuspid regurgitation. No pulmonary hypertension is noted. There is no tricuspid stenosis. Pulmonic Valve: The pulmonic valve appears normal. There is mild to moderate pulmonic regurgitation. There is no pulmonic stenosis. Pericardium: There is no significant pericardial effusion. Aorta: There is mild dilatation of the ascending aorta. There is no dilatation of the aortic arch. The aortic root is normal in size. Pulmonary Artery: The main pulmonary artery appears normal. Venous: The inferior vena cava appears normal in size. There is a greater than 50% respiratory change in the inferior vena cava dimension. Conclusions Global left ventricular wall motion and contractility are within normal limits. The estimated ejection fraction is 55%. The right ventricular global systolic function is low normal to mildly depressed. Valves show mild sclerosis. There is a trace of aortic regurgitation. There is mild mitral regurgitation. There is mild tricuspid regurgitation, more prominant wth MR. There is mild to moderate pulmonic regurgitation. No pulmonary hypertension is noted. There is no significant pericardial effusion. Measurements Name Value Normal Range RVDdMajor (2D) 3.7 cm (2.2 - 4.4) RAd ISD 4CH 5.2 cm (3.4 - 4.9) RA (A4C)W 3.4 cm (2.9 - 4.6) IVSd (2D) 0.9 cm (0.6 - 1) LVPWd (2D) 0.9 cm (0.6 - 1) LVIDd (2D) 4.3 cm (3.6 - 5.4) LVIDs (2D) 3.2 cm - LV FS (2D) 25 % (25 - 45) Aortic Annulus 2.2 cm (1.4 - 2.6) Ao root diameter (2D) 3.3 cm (2.1 - 3.5) Ascending Ao 3.5 cm (2.1 - 3.4) Aortic arch 2.6 cm (1.8 - 3.4) LA dimension (AP) 2D 3.4 cm (2.3 - 3.8) LAd ISD 4CH 4.3 cm (2.9 - 5.3) LA ISD 4CH W 4 cm (2.5 - 4.5) Name Value Normal Range LA ESV SP 4CH (A/L) 38.8 ml - LA ESV SP 2CH (A/L) 47.8 ml - LA ESV BP (A/L) 46.2 ml - LA ESV BP (A/L) index 25.3 ml/m2 - LA ESV SP 4CH (MOD) 36.9 ml - LA ESV SP 2CH (MOD) 45.5 ml - Name Value Normal Range MV E-wave Vmax 0.51 m/sec - MV deceleration time 333 msec - MV A-wave Vmax 0.69 m/sec - MV E:A ratio 0.73 ratio - LV septal e' Vmax 0.08 m/sec - LV lateral e' Vmax 0.11 m/sec - LV E:e' septal ratio 6.4 ratio - LV E:e' lateral ratio 4.6 ratio - Name Value Normal Range AV Vmax 1.1 m/sec - AV VTI 26.1 cm - AV peak gradient 5.2 mmHg - AV mean gradient 3.4 mmHg - LVOT Vmax 1 m/sec - LVOT VTI 19.6 cm - LVOT peak gradient 3.9 mmHg - LVOT mean gradient 1.7 mmHg - CAESAR Vmax 0.52 m/sec - Name Value Normal Range TR Vmax 2.3 m/sec - TR peak gradient 21 mmHg - RAP 3 mmHg - RVSP 24 mmHg - IVC diameter 1.6 cm - Name Value Normal Range PV Vmax 0.83 m/sec -
--- NOTE | 2017-01-29 12:16 | CONS ---
CC: Dr. Manuel Campbell; Dr. Melia Tom* INTERVENTIONAL CARDIOLOGY CONSULT NOTE: DATE OF CONSULT: 01/29/17 INDICATIONS FOR PROCEDURE: The patient presents with abnormal EKG with diffuse ST segment elevation with chest pain with a history of coronary artery disease, status post placement of a stent in the proximal LAD in October 2015. HISTORY OF PRESENT ILLNESS: The patient is a 61-year-old gentleman whom a STEMI alert was called by Dr. Perla, ER physician at [facility] with a known history of prior stent to the proximal LAD in October 2015. The patient stated he awakened in the morning in bed with chest upper left discomfort. In general, he is a difficult historian, but stated at times this felt like pressure waxing and waning throughout the day, but also at times felt like pulsation, as well as mild sharpness. He thought there was some radiation up to the throat area, but not into the jaw or bilateral arms. It was not associated with nausea, vomiting, or diaphoresis. He eventually decided that the symptom was worrisome enough that he called the ambulance and STEMI alert was called en route. Dr. Perla, emergency room physician already given the patient [address] Perla initially thought the patient was on prasugrel, but in reality the patient was on Plavix. He had gotten full dose aspirin. When I saw him, he was still having residual chest discomfort. The EKG demonstrated diffuse ST segment and J-point elevation that in all honesty may have represented acute ischemia, but with the concave upward ST segment, a possibility of also pericarditis was raised. The patient's cardiac history includes the history of having had a stent placed back in October 2015 with a 3.5 x16 mm long Synergy drug-eluting stent. He was placed on prasugrel and aspirin and in June 2016, he had a GI bleed that was felt to be due to ischemic colitis at the hepatic flexure. His hemoglobin reportedly on admission at that time was 11.2, but dropped as low as 7.6. He received 1 unit with good christian of his hemoglobin. He was assessed by GI who eventually felt that the patient could go back on the prasugrel and aspirin and reportedly he was discharged on that from the hospital. He then saw Dr. Tom his primary student teacher, who switched him to Plavix for less of a risk of bleeding and continued the baby aspirin, as he had not completed a full 12 month course of dual antiplatelet therapy. According to the patient, he has been very inconsistent at best with the medications. He readily admits he does not take any aspirin and the Plavix he had taken at times and sometimes he would forget. When the patient was seen by Dr. Tom in October, the patient admitted that he was not on the aspirin and Dr. Tom recommended he go back on it and but he never really did. The risks and benefits of cardiac catheterization were explained to him. He understood them and wished to proceed. PAST MEDICAL HISTORY: 1. Coronary artery disease. 2. Allergic rhinitis. CURRENT MEDICATIONS: Reportedly are: 1. Plavix 75 mg a day, which he takes inconsistently. 2. Aspirin 81 mg which he admits he was not taking. 3. Metoprolol tartrate 12.5 mg twice a day. 4. Lisinopril 10 mg a day that he had run out of when he saw Dr. Tom in October , but apparently got restarted on. ALLERGIES: No known drug allergies. SOCIAL HISTORY: He is single, lives alone. He is a former smoker. REVIEW OF SYSTEMS: Pertinent preceding to the cardiovascular laboratory, he has no history of TIA or stroke. He does have a history of GI bleed as mentioned. No history of renal insufficiency or dye allergy. He has denied any nausea, vomiting, diaphoresis or shortness of breath. PHYSICAL EXAM: In the emergency room revealed blood pressure 99/63, pulse 57, O2 saturation 97%. Neck: Supple without increased JVP. Carotids had fair upstroke and volume. There were no definite bruits. Conjunctivae are pink. Sclerae clear. Lungs reveal no accessory muscle use and there was good excursion. There were no active rales, rhonchi, or wheezes. Heart reveals no visible heaves. No palpable heaves or thrills. Heart sounds in general were distant. I could not appreciate a significant systolic murmur or a rub. Abdomen was soft, nontender, without organomegaly. Extremities: Without edema. Pulses were intact. Neuro: The patient alert, oriented, with normal mentation. Musculoskeletal: The patient moves all extremities appropriate. Psychological: The patient is seen quite relaxed with his chest discomfort. DIAGNOSTIC STUDIES/LAB DATA: EKG showed diffuse ST-T wave changes without elevations, concave upward in almost all the lead raising a question of pericarditis versus acute ischemia. 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 His BNP was 76. BUN and creatinine were 10 and 0.7, potassium 4.0. Chest x-ray report was pending. OVERALL ASSESSMENT: Randy presents with symptoms that are very difficult to delineate, but in looking at him, in all honesty, I did not believe it is consistent with an acute massive anterior SD. Still given the fact that he has had very inconsistent dual antiplatelet therapy over his year of therapy and he has a proximal LAD lesion and diffuse changes are throughout the anterior wall as well as the inferior wall, I would recommend proceeding to the cardiovascular laboratory and ruling that out before considering this all as pericarditis. We will send off a sed rate after the catheterization and C- reactive protein as well. Further management will be made pending the results of the cardiac catheterization. He understands the risks and benefits and wishes to proceed. [id number]/[facility] #: [id number] ARTUR
--- NOTE | 2017-01-29 12:32 | CATH ---
CC: Dr. Blankenship at [facility]; Dr. Melia Tom* CARDIAC CATHETERIZATION REPORT: DATE OF PROCEDURE: 01/28/17 INDICATION FOR THE PROCEDURE: Patient with chest discomfort and markedly abnormal EKG with diffuse ST-segment elevations. PROCEDURE: Coronary arteriography, left heart catheterization, left ventriculography. DESCRIPTION OF PROCEDURE: The patient was interviewed and examined in the emergency room where the risks and benefits were explained. He understood them and wished to proceed. He was brought to the cardiovascular laboratory where a formal time-out was performed. He was prepped and draped in sterile fashion. The right radial artery area was anesthetized with 1% lidocaine and right radial artery was cannulated and a 6-Liberian Terumo Glidesheath was placed, after which a radial artery cocktail including 300 mcg of intraarterial nitroglycerin as well as 3 mg of verapamil were administered. Of note, the heparin was not given as he got heparin bolus in the emergency room. He had transient low blood pressure for which 64 mcg of Levophed were given with good stabilization of blood pressure. Coronary arteriography was performed utilizing a 5-Liberian TIG 4 curve catheter. Central aortic pressure was recorded using a 5-Liberian TIG Performa radial catheter. The catheter was then passed across the aortic valve into the left ventricle. The left ventricular pressure was recorded. The left ventriculography was performed utilizing a total of 26 cc of Omnipaque dye at a rate of 13 cc per second. A catheter was pulled back across the aortic valve to recheck gradient. Following this, the catheter and sheath were removed and hemostasis was obtained with a Vasc Band. The total contrast used was 75 cc of Omnipaque dye. The radiation exposure included 7 minutes of fluoro time. The air kerma radiation was 422 milligray, the DAP radiation was 2615 microgray per meter squared. RESULTS: HEMODYNAMIC DATA: Left heart catheterization - central aortic pressure was recorded at 86/50 with a mean of 67. Left ventricular pressure 83 over left ventricular end- diastolic pressure of 10. LEFT VENTRICULOGRAPHY: Performed in the BHATIA projection revealed symmetrical contraction of the left ventricle with no focal wall motion abnormalities. The overall ejection fraction was noted to be 55% to 60%. CORONARY ARTERIOGRAPHY: A. Left coronary artery: 1. Left main - widely patent, no stenosis seen. 2. Left anterior descending artery - the proximal portion of the left anterior descending artery had a 40-45% narrowing leading to the area of stent placement. There was no evidence of in-stent restenosis. Initially, there appeared to be slightly slower flow down the LAD compared to the circumflex, which improved during the coronary artery injections. The LAD supplied a very thin high first diagonal branch followed by a second and third diagonal branch and there was no significant stenosis seen throughout those vessels as well. 3. Circumflex artery - a non-dominant vessel supplying a high first obtuse marginal branch and a mid moderate size obtuse marginal branch extending to the posterior apical region. There is no significant stenosis seen throughout the course of the circumflex artery. B. Right coronary artery - a dominant vessel supplying the PDA and posterior left ventricular branches. There was no significant stenosis seen throughout the course of the vessel. OVERALL ASSESSMENT: No significant coronary artery disease seen throughout the coronary arteries with no evidence of in-stent restenosis in the left anterior descending artery. A 40% proximal LAD narrowing was noted and initially there was mild slow flow down the LAD compared to the circumflex that may have been from preferential flow due to catheter direction with bradycardia present. There was equal flow noted with further injections. Normal left ventricular systolic function seen as well. Given these findings, the probability of perhaps acute pericarditis may be more of the possibility versus perhaps with less so being coronary artery spasm. We will continue his current medications especially with dual antiplatelet therapy and await sed rate and CRP with recommendations for possibly instituting colchicine and aspirin therapy at a higher dosing and more frequent for possible diagnosis of pericarditis. [id number]/[facility] #: [id number] ARTUR
[2017-01-29] MEDS: Aspirin TAB* 325 MG PO SCH (16:45)
[2017-01-29] MEDS: HYDROcodone/ACETAMIN 5-325 MG* 1 TAB PO PRN ×2 (17:36→20:56)
[2017-01-29] MEDS: Colchicine* 0.6 MG TAB PO SCH (20:57)
[2017-01-30] MEDS: CMCS: Pantoprazole TAB (NF) 40 MG TAB PO SCH (05:43)
[2017-01-30] MEDS: HYDROcodone/ACETAMIN 5-325 MG* 1 TAB PO PRN ×2 (05:48→10:21)
--- NOTE | 2017-01-30 07:35 | PN ---
Subjective Date of Service: 01/30/17 Interval History: Mr. Mahoney states that he is feeling quite well. He denies chest pain or SOB. He is eager for discharge to home. Objective Active Medications: Hydrocodone Bitart/Acetaminophen ([place] 5-325 Tab*) 1 tab PO Q4H PRN Aspirin (Aspirin Low Dose Tab*) 81 mg PO DAILY [facility] Aspirin (Aspirin Tab*) 325 mg PO AC [facility] Clopidogrel Bisulfate (Plavix Tab*) 75 mg PO DAILY [facility] Colchicine (Colcrys*) 0.6 mg PO BID [facility] Heparin Sodium (Porcine) (Heparin Vial(*)) 4,000 units IV ED ONCE [facility] Lisinopril (Prinivil Tab*) 5 mg PO DAILY [facility] Metoprolol Tartrate (Lopressor Tab*) 12.5 mg PO BID [facility] Nitroglycerin (Nitroglycerin Tab 0.4 Mg*) 0.4 mg SL Q5M PRN Ondansetron HCl (Zofran Inj*) 4 mg IV Q6H PRN Pantoprazole Sodium (Protonix Tab (Nf)) 40 mg PO DAILY@0600 [facility] Vital Signs: Temp Pulse Resp BP Pulse Ox 98.4 F 48 16 137/69 98 01/30/17 07:39 01/30/17 07:39 01/30/17 10:21 01/30/17 07:39 01/30/17 08:00 Oxygen Devices in Use Now: None Appearance: Male sitting up in bed in NAD Eyes: No Scleral Icterus Ears/Nose/Mouth/Throat: Mucous Membranes Moist Neck: Trachea Midline Respiratory: Symmetrical Chest Expansion and Respiratory Effort, Clear to Auscultation Cardiovascular: NL Sounds; No Murmurs; No JVD, No Edema Abdominal: NL Sounds; No Tenderness; No Distention Lymphatic: No Cervical Adenopathy Extremities: No Edema Skin: No Rash or Ulcers Neurological: Alert and Oriented x 3, NL Muscle Strength and Tone Nutrition: Taking PO's Result Diagrams: 01/29/17 05:15 01/29/17 05:15 Additional Lab and Data: . Microbiology and Other Data: Microbiology 01/28/17 21:42 Nasal Screen MRSA (PCR)(CHUN) - Final Nasal Mrsa Negative Assess/Plan/Problems-Billing Assessment: Mr. Mahoney is a 61 yo male with a PMH of STEMI with SARAH placement who was admitted on 01/27/17 with chest pain and is now s/p cardiac cath with finding of no significant CAD. - Patient Problems (1) Chest pain Comment: - No evidence of significant CAD via cardiac cath. - Dr. Rosen concerned for pericarditis given difuse ST changes on EKG. - Plan to continue colchicine and aspirin. - Routine follow up with Dr. Tom after cardiac cath. (2) CAD (coronary artery disease) Comment: - Continue aspirin and plavix. (3) DVT prophylaxis (4) Full code status Status and Disposition: Inpatient. Discharge to home
[2017-01-30] MEDS: Aspirin TAB* 325 MG PO SCH ×2 (08:17→11:35)
[2017-01-30] MEDS: Clopidogrel TAB* 75 MG PO SCH (08:18)
[2017-01-30] MEDS: Colchicine* 0.6 MG TAB PO SCH (08:18)
[2017-01-30] MEDS: Metoprolol Tartrate TAB* 25 MG PO SCH (08:19)
[2017-01-30] MEDS ORDERED: Lisinopril TAB* 10 MG PO SCH (09:00)
[2017-01-30] MEDS ORDERED: Lisinopril TAB* 5 MG PO SCH (09:00)
[2017-01-30 13:41] VITALS: BP 126/74
--- NOTE | 2017-01-30 21:31 | DS ---
CC: Dr. Blankenship* DISCHARGE SUMMARY: DATE OF ADMISSION: 01/29/17. DATE OF DISCHARGE: 01/30/17. PRIMARY CARE PHYSICIAN: Dr. Blankenship. ATTENDING PHYSICIAN: Dr. Althea Adan DO* (dictation provided by Keyla Mendez NP) PRIMARY DIAGNOSIS: Chest pain with suspected pericarditis. SECONDARY DIAGNOSES: 1. History of ST-elevation NM status post stent to the LAD, 10/2015. 2. Ischemic colitis, June 2016. MEDICATIONS AT TIME OF DISCHARGE: 1. Hydrocodone with acetaminophen 5/325 one tab p.o. b.i.d. p.r.n. 2. Lisinopril 10 mg p.o. daily. 3. Nitroglycerin 0.4 mg sublingually q.5 minutes p.r.n. chest pain. 4. Pantoprazole 40 mg p.o. daily. 5. Metoprolol tartrate 12.5 mg p.o. b.i.d. 6. Colchicine 0.6 mg p.o. b.i.d. 7. Plavix 75 mg p.o. daily. 8. Aspirin 325 mg p.o. q.a.c. x7 days. HOSPITAL COURSE: Mr. Mahoney is a 61-year-old male with a past medical history of coronary artery disease with ST-elevation NM and stent to the LAD in 2015. He also has a history of ischemic colitis that was self limited in June 2016. He presented to the hospital on 01/29/17 with concern for chest pain. Please see dictated H and P from Jurgen Baeza MD for complete details. In brief, the patient had left parasternal chest pain radiating to the right parasternal area. He had concern for an EKG, which showed sinus bradycardia with diffuse ST elevations new compared to June 2016. Mr. Mahoney was admitted to the hospital. He was emergently taken to the cardiac catheterization lab by Dr. Rosen. Per the report, there was "no significant coronary artery disease seen throughout the coronary arteries and no evidence of in- stent restenosis in the left anterior descending artery". Based on these findings, he thought perhaps patient had acute pericarditis versus coronary artery spasm although the later seemed less likely based on the diffuse ST changes via EKG. Patient had transthoracic echocardiogram on which was read as follows, "ejection fraction is 55%, global left ventricular wall motion contractility within normal limits. There is no significant pericardial effusion". Mr. Mahoney was started on colchicine and aspirin 325 mg p.o. with meals for 7 days under direction of Dr. Rosen for concern of pericarditis. Patient is chest pain free today. He is ambulating on the unit without difficulty. Plans are for him to follow up with Dr. Tom per routine after his hospitalization as well as his primary care physician, Dr. Blankenship. DISPOSITION: Home. DIET: Low fat, low salt. ACTIVITY: As tolerated. FOLLOWUP: Please follow up with Dr. Tom, an appointment is scheduled for 06/24 at 3:20 p.m. and please follow up with Dr. Blankenship. Our office will be calling the patient for an appointment. TIME SPENT: Approximately 60 minutes was spent in discharge of this patient, more than half that time spent with the patient at bedside reviewing the events leading up to this hospitalization, performing physical examination, and reviewing my plan of care. KEYLA MENDEZ NP [id number]/[facility] #: [id number] ARTUR
== END 2017-01-30 13:25 | disposition home or self-care (01) | DRG 191 ==
LOC: ED 19:13 → ICU 20:14 → MEDTELE 01-29 12:54
PROVIDERS: ADMIT Internal Medicine Cardiovascular Disease; ATTEND Hospitalist
PROC: B211YZZ Fluoroscopy of Multiple Coronary Arteries using Other Contrast (ICD-10-PCS; 2017-01-28)
PROC: B215YZZ Fluoroscopy of Left Heart using Other Contrast (ICD-10-PCS; 2017-01-28)
PROC: 4A023N7 Measurement of Cardiac Sampling and Pressure, Left Heart, Percutaneous Approach (ICD-10-PCS; principal; 2017-01-28 15:00)
DX: I31.9 Disease of pericardium, unspecified (principal); I25.2 Old myocardial infarction; R07.9 Chest pain, unspecified; I25.10 Atherosclerotic heart disease of native coronary artery without angina pectoris; Z95.5 Presence of coronary angioplasty implant and graft; Z87.891 Personal history of nicotine dependence; Z79.01 Long term (current) use of anticoagulants; Z79.899 Other long term (current) drug therapy
CPT/HCPCS: 36415; 71010; 80053; 80061; 82550; 82553; 83721; 83735; 83874; 83880; 84484; 85025; 85379; 85610; 85652; 85730; 86140; 86850; 86900; 86901; 87641; 93005; 93306; 93308; 93458; 99156; 99157; A9270-GY

== ENCOUNTER 2023-06-07 09:26 | Observation (INO) ==
[2023-06-07] MEDS ORDERED: Morphine 4 MG/ML VIAL (1 ml) IV ONE ×2 (10:56→13:54)
[2023-06-07 11:18] LABS: ABS Monocytes 0.5 10^3/uL (0.0-1.1); ABS Neutrophils 13.5 10^3/uL (1.5-7.6); ABS Nucleated RBC 0.02 10^3/ul; Hematocrit 37.8 % (38-53); Hemoglobin 12.7 g/dL (13.2-16.3); Lymphocyte % 6.5 %; Mean Corpuscular Hemoglobin 29.3 pg (27-33); Mean Corpuscular Hgb Conc 33.7 g/dL (31-36); Mean Platelet Volume 8.2 fL (7.5-11.2); Nucleated Red Blood Cells % 0.1 %/100WBC (0.0-0.8); Platelet Count 353 10^3/uL (150-450); Red Blood Count 4.35 10^6/uL (4.06-5.63); Red Cell Distribution Width 13.7 % (12-17); White Blood Count 15.1 10^3/uL (3.6-10.2)
[2023-06-07 11:53] LABS: ALT 11 U/L (7-52); AST 19 U/L (13-39); Albumin 4.6 g/dL (3.2-5.2); Albumin/Globulin Ratio 1.4 (1-3); Alkaline Phosphatase 67 U/L (35-149); Anion Gap 7 mmol/L (2-16); Blood Urea Nitrogen 18 mg/dL (6-24); CO2 Carbon Dioxide 28 mmol/L (22-32); Calcium 9.8 mg/dL (8.6-10.3); Chloride 100 mmol/L (101-111); Creatinine, Serum 0.88 mg/dL (0.67-1.17); Globulin 3.3 g/dL (2-4); Glucose 136 mg/dL (70-100); Lipase < 10 U/L (11.0-82.0); Potassium 4.3 mmol/L (3.5-5.0); Sodium 135 mmol/L (135-145); Total Bilirubin 0.7 mg/dL (0.2-1.0); Total Protein 7.9 g/dL (6.4-8.9); eGFR CKD-EPI 94.8 (>60)
[2023-06-07] MEDS ORDERED: Lactated Ringers 1000 ml BAG 1,000 ML IV ONE (12:34)
[2023-06-07] MEDS ORDERED: Iohexol 300 (CONTRAST) 10 ML SDV IV ONE (12:49)
[2023-06-07] MEDS ORDERED: Piperacillin/Tazobac 3.375 BAG 3.375 GM/100 ML BAG IV ONE (13:45)
[2023-06-07 14:22] LABS: Urine Appearance Clear; Urine Bilirubin Negative (Negative); Urine Blood Negative (Negative); Urine Color Yellow; Urine Glucose Negative (Negative); Urine Ketones Trace (Negative); Urine Nitrite Negative (Negative); Urine Protein Negative (Negative); Urine Specific Gravity 1.053 (1.002-1.030); Urine Urobilinogen Negative (Negative)
[2023-06-07] MEDS ORDERED: Acetaminophen IV 1 GM/100ML 1,000 MG/100 ML BAG IV ONE ×2 (14:48→15:37)
[2023-06-07] MEDS ORDERED: Morphine 2 MG/ML SYRINGE IV PRN (14:49)
[2023-06-07] MEDS ORDERED: Zosyn per Pharmacy NOTE FOLLOW UP SCH ×2 (15:00→20:00)
[2023-06-07] MEDS ORDERED: NS 0.9% 1000 ml BAG 1,000 ML IV SCH (15:00)
[2023-06-07] MEDS ORDERED: Bupivacaine 0.25% SDV 30 ML ONE (15:42)
[2023-06-07] MEDS ORDERED: Propofol 10 MG/ML 20 ML BTL ONE (16:14)
[2023-06-07] MEDS ORDERED: Midazolam 2 mg/2 ml VIAL 1 mg/ml 2 ml VIAL (2 mg) ONE (16:14)
[2023-06-07] MEDS ORDERED: Lidocaine 2% PF 5 ML VIAL ONE (16:14)
[2023-06-07] MEDS ORDERED: fentaNYL 100 mcg/2 ml 50 MCG/ML VIAL ONE (16:14)
[2023-06-07] MEDS ORDERED: Ondansetron 4 mg VIAL 2 MG/ML 2 ml VIAL ONE (16:14)
[2023-06-07] MEDS ORDERED: Dexamethasone IV 4 MG/ML VIAL 1 ml VIAL ONE (16:14)
[2023-06-07] MEDS ORDERED: Rocuronium 50 mg VIAL 10 mg/ml 5 ml VIAL (50 mg) ONE ×2 (16:14→18:49)
[2023-06-07] MEDS ORDERED: ceFAZolin 1 GM in Dextrose 0 GM/0 ML BAG ONE (17:01)
[2023-06-07] MEDS ORDERED: ceFAZolin 2 GM PREMIX 2 GM/50 ML BAG ONE (17:14)
[2023-06-07] MEDS ORDERED: ZOSYN 3.375 GM Q8H per EXTENDED INFUSION IV SCH ×2 (18:00→22:00)
[2023-06-07] MEDS ORDERED: HYDROmorphone 0.5 MG/0.5 ML SYRINGE ONE (18:33)
[2023-06-07] MEDS ORDERED: Glycopyrrolate IV 0.2 MG/ML 1 ML VIAL ONE (18:33)
[2023-06-07] MEDS ORDERED: Ondansetron 4 mg VIAL 2 MG/ML 2 ml VIAL IV PRN (19:41)
[2023-06-07] MEDS ORDERED: Acetaminophen IV 1 GM/100ML 1,000 MG/100 ML BAG IV SCH (22:00)
[2023-06-08] MEDS: HYDROmorphone 0.5 MG/0.5 ML SYRINGE IV SLOW PU PRN ×2 (00:19→05:59)
[2023-06-08] MEDS ORDERED: ZOSYN 3.375 GM x ONE DOSE over 30 miuntes IV (01:00)
[2023-06-08] MEDS: Acetaminophen IV 1 GM/100ML 1,000 MG/100 ML BAG IV SCH ×2 (05:31→12:37)
[2023-06-08] MEDS: ZOSYN 3.375 GM Q8H per EXTENDED INFUSION IV SCH ×2 (05:56→13:51)
[2023-06-08 06:32] LABS: ABS Lymphocytes 1.4 10^3/uL (1.0-4.8); ABS Monocytes 0.7 10^3/uL (0.0-1.1); ABS Neutrophils 7.3 10^3/uL (1.5-7.6); ABS Nucleated RBC 0.01 10^3/ul; Hematocrit 36.1 % (38-53); Hemoglobin 12.3 g/dL (13.2-16.3); Lymphocyte % 14.8 %; Mean Corpuscular Hemoglobin 29.6 pg (27-33); Nucleated Red Blood Cells % 0.1 %/100WBC (0.0-0.8); Platelet Count 305 10^3/uL (150-450); Red Blood Count 4.15 10^6/uL (4.06-5.63); Red Cell Distribution Width 13.7 % (12-17); White Blood Count 9.3 10^3/uL (3.6-10.2)
[2023-06-08 06:55] LABS: Calcium 8.9 mg/dL (8.6-10.3); Creatinine, Serum 0.88 mg/dL (0.67-1.17); Potassium 3.9 mmol/L (3.5-5.0); eGFR CKD-EPI 94.8 (>60)
[2023-06-08] MEDS ORDERED: Potassium Chlor 20 meq TAB.ER PO SCH (09:00)
[2023-06-08] MEDS ORDERED: Benzocaine/Menthol LOZ MT PRN (09:26)
[2023-06-08 13:34] VITALS: BP 113/67
== END 2023-06-08 18:55 | disposition home or self-care (01) ==
LOC: ED 09:26 → OR 15:21 → SSU 21:09 → INTOOBSV 21:09
PROVIDERS: ADMIT Surgery; ATTEND Surgery